=== PATIENT | female | born 1940 | race Caucasian/White ===

== ENCOUNTER 2018-03-07 17:50 | Inpatient (IN) | payer OTHER ==
[~2018-03-07] VITALS: Ht 170.2 cm; Wt 65.4 kg
[2018-03-07] MEDS ORDERED: ACETAMINOPHEN 500 MG TAB PO STA (18:41)
[2018-03-07] MEDS ORDERED: SODIUM CHLORIDE 0.9% 500ML 500 ML IV STA (18:41)
--- NOTE | 2018-03-07 18:44 | EMERGENCY ROOM VISIT NOTE ---
History Report prepared by Glynn: Grzegorz Ny Under the Supervision of: Dr. Kamini Pereyra D.O. First contact with patient: 18:31 Chief Complaint: ILLNESS Stated Complaint: MENTAL STATUS CHANGE,INCONTINENCE,EAR PAIN,UTI History of Present Illness The patient is a 77 year old female who presents to the Emergency Room with complaints of a constant AMS beginning yesterday. Per daughter, the patient flew here yesterday from [place]. She states that the patient has been having ear pain, cognitive changes, and a fever. She notes that the patient was taken to an urgent care facility today and had a fever of 101.5. She reports that she is worried that the patient might have a UTI. The patient denies any cough, headache, abdominal pain, chest pain, nausea, diarrhea, urinary symptoms, blood in her stool, dizziness, weakness, and known sick contacts. Source of History: patient, family (daughter) Onset: yesterday Position: other (head) Quality: other (AMS) Timing: constant Associated Symptoms: + fevers (101.5), No headache, No cough, No chest pain , No nausea, No abdominal pain, No diarrhea, No urinary symptoms, No weakness Note: Per daughter, the patient has also been having ear pain and cognitive changes. The patient also denies any blood in her stool and dizziness. Review of Systems See HPI for pertinent positives & negatives. A total of 10 systems reviewed and were otherwise negative. Past Medical & Surgical Medical Problems: (1) Atrial fibrillation (2) Dementia (3) Dyslipidemia (4) No chronic problems (5) TIA (transient ischemic attack) Surgical Problems: (1) H/O: hysterectomy Family History No pertinent family history stated. Social History Smoking Status: Never Smoker Marital Status: single Housing Status: lives with family Current/Historical Medications Scheduled Aspirin (Aspirin Ec), 81 MG PO DAILY Carboxymethylcellulose Sodium (Refresh Tears), 1 DROP OPB prn Allergies Coded Allergies: No Known Allergies (Unverified , 03/07/18) Physical Exam Vital Signs Date Time Temp Pulse Resp B/P (MAP) Pulse Ox O2 Delivery O2 Flow Rate FiO2 03/07/18 21:57 100 18 123/50 97 Room Air 03/07/18 21:35 100 22 158/112 98 Room Air 03/07/18 20:32 36.7 03/07/18 20:20 89 03/07/18 20:20 89 24 128/95 96 Room Air 03/07/18 18:40 90 24 141/82 97 Room Air 03/07/18 18:05 37.5 102 18 135/75 95 Room Air Physical Exam GENERAL: alert, well appearing, well nourished, no distress, non-toxic, febrile. EYE EXAM: normal conjunctiva, PERRL and EOM's grossly intact OROPHARYNX: no exudate, no erythema, lips, buccal mucosa, and tongue normal and mucous membranes are moist EARS: No effusion, no evidence of otitis media or otitis externa. NECK: supple, no nuchal rigidity, no adenopathy, non-tender LUNGS: Clear to auscultation. Normal chest wall mechanics HEART: no murmurs, S1 normal and S2 normal ABDOMEN: abdomen soft, non-tender, normo-active bowel sounds, no masses, no rebound or guarding. BACK: Back is symmetrical on inspection and there is no deformity, no midline tenderness, no CVA tenderness. SKIN: no rashes and no bruising UPPER EXTREMITIES: upper extremities are grossly normal. LOWER EXTREMITIES: No pitting edema. NEURO EXAM: Cranial nerves II-XII grossly intact, normal speech, no gross weakness of arms, no gross weakness of legs, confused, no ataxia, no facial droop. Medical Decision & Procedures ER Provider Diagnostic Interpretation: Radiology results have been interpreted by the radiologist and reviewed by me. HEAD WITHOUT CONTRAST (CT) FINDINGS: [employer] topogram: Unremarkable. Proportional ventricular and sulcal prominence, likely age-related parenchymal volume loss. Periventricular and subcortical white matter hypoattenuation, nonspecific but likely indicative of chronic small vessel ischemic change. No mass effect or midline shift. No hemorrhage or acute territorial infarct. No extra-axial fluid collection. Aerated secretions in the bilateral maxillary sinuses with mucosal thickening in ethmoid air cells. Calvarium intact. Postsurgical changes of the bilateral globes. IMPRESSION: 1. Chronic small vessel ischemic change. No acute intracranial abnormality. 2. Aerated secretions in the bilateral maxillary sinuses consistent with acute sinusitis. Electronically signed by: Delvis Jeter M.D. 03/07/2018 7:56 PM CHEST ONE VIEW PORTABLE FINDINGS: The patient is JAS[place] rotated. Atherosclerosis of aortic arch. Cardiac silhouette top normal in size allowing for patient rotation. Mild bronchial wall thickening suggested. Slight heterogeneity of lung parenchyma. No focal opacity. No large effusion or pneumothorax. Osseous structures normal. Upper abdomen normal. IMPRESSION: 1. No focal opacity to suggest pneumonia. 2. Suggestion of bronchial wall thickening. This could represent mild congestive change or bronchitis. 3. Heterogeneity of lung parenchyma is nonspecific. Underlying emphysema not excluded. Electronically signed by: Delvis Jeter M.D. 03/07/2018 7:42 PM Laboratory Results Test 03/07/18 18:35 03/07/18 19:01 03/07/18 19:20 Immature Granulocyte % (Auto) 0.3 % White Blood Count 13.66 K/uL (4.8-10.8) Red Blood Count 4.11 M/uL (4.2-5.4) Hemoglobin 13.6 g/dL (12.0-16.0) Hematocrit 39.2 % (37-47) Mean Corpuscular Volume 95.4 fL (80-100) Mean Corpuscular Hemoglobin 33.1 pg (25-34) Mean Corpuscular Hemoglobin Concent 34.7 g/dl (32-36) Platelet Count 255 K/uL (130-400) Mean Platelet Volume 9.4 fL (7.4-10.4) Neutrophils (%) (Auto) 70.0 % Lymphocytes (%) (Auto) 18.9 % Monocytes (%) (Auto) 10.0 % Eosinophils (%) (Auto) 0.4 % Basophils (%) (Auto) 0.4 % Neutrophils # (Auto) 9.57 K/uL (1.4-6.5) Lymphocytes # (Auto) 2.58 K/uL (1.2-3.4) Monocytes # (Auto) 1.36 K/uL (0.11-0.59) Eosinophils # (Auto) 0.05 K/uL (0-0.5) Basophils # (Auto) 0.06 K/uL (0-0.2) Immature Granulocyte # (Auto) 0.04 K/uL (0.00-0.02) Prothrombin Time 10.7 SECONDS (9.0-12.0) Prothromb Time International Ratio 1.0 (0.9-1.1) Total Bilirubin 0.5 mg/dl (0.2-1) Aspartate Amino Transf (AST/SGOT) 20 U/L (15-37) Alanine Aminotransferase (ALT/SGPT) 23 U/L (12-78) Alkaline Phosphatase 105 U/L (45-117) Pro-B-Type Natriuretic Peptide 199 pg/ml (0-1800) Total Protein 6.8 gm/dl (6.4-8.2) Albumin 3.2 gm/dl (3.4-5.0) Globulin 3.6 gm/dl (2.5-4.0) Albumin/Globulin Ratio 0.9 (0.9-2) Lipase 110 U/L (73-393) Procalcitonin 0.06 ng/ml (0-0.5) Thyroid Stimulating Hormone (TSH) 0.563 uIu/ml (0.300-4.500) Bedside Lactic Acid Venous 1.54 mmol/L (0.90-1.70) Urine Color YELLOW Urine Appearance CLEAR (CLEAR) Urine pH 6.0 (4.5-7.5) Urine Specific [place] 1.015 (1.000-1.030) Urine Protein NEG (NEG) Urine Glucose (UA) NEG (NEG) Urine Ketones NEG (NEG) Urine Occult Blood 2+ (NEG) Urine Nitrite NEG (NEG) Urine Bilirubin NEG (NEG) Urine Urobilinogen NEG (NEG) Urine Leukocyte Esterase NEG (NEG) Urine WBC (Auto) 1-5 /hpf (0-5) Urine RBC (Auto) 0-4 /hpf (0-4) Urine Hyaline Casts (Auto) 0 /lpf (0-5) Urine Epithelial Cells (Auto) 0-5 /lpf (0-5) Urine Bacteria (Auto) NEG (NEG) Influenza Type A Antigen Neg for Influ A (NEG) Influenza Type B Antigen Neg for Influ B (NEG) Laboratory results per my review. Medications Administered Medications (Trade) Dose Ordered Sig/Gisele Route Start Time Stop Time Status Last Admin Dose Admin Acetaminophen (Tylenol Tab) 1,000 mg NOW STAT PO 03/07/18 18:41 03/07/18 18:43 DC 03/07/18 19:06 1,000 MG Sodium Chloride 500 ml @ 999 mls/hr Q31M STAT IV 03/07/18 18:41 03/07/18 19:11 DC 03/07/18 19:10 999 MLS/HR Lorazepam (Ativan Inj) 1 mg NOW STAT IV 03/07/18 21:23 4/13/18 21:24 DC 03/07/18 21:27 1 MG Lorazepam (Ativan Inj) 1 mg NOW STAT IV 03/07/18 22:02 03/07/18 22:04 DC 03/07/18 22:02 1 MG ECG Per My Interpretation Indication: altered mental status Rate (beats per minute): 90 Rhythm: sinus rhythm Findings: RBBB, no acute ischemic change, no ectopy, other (Left axis) ED Course 1831: The patient was evaluated in room A9. A complete history and physical exam was performed. 1840: Sodium Chloride 500 ml @ 999 mls/hr IV, Acetaminophen 1000mg PO 2024: I reevaluated and updated the patient and her daughter. The patients temperature is better but she is still confused. She is eating at bedside. Her daughter states that she has been trying to have the patient placed in a correction care facility due to her worsening cognition over the last few months. 2122: Lorazepam 1mg IV 2123: I rechecked the patient. She is becoming more agitated. I discussed the possibility of an LP on the patient. I have a low suspicion of meningitis/ encephalitis. Daughter does not feel the patient should have a lumbar puncture at this time. Given my low suspicion I agree and we will avoid the LP at this time but discussed with her this may need to be revisited should her condition worsen or she starts to complain of other symptoms more suggestive of meningitis /encephalitis. The daughter verbalized understanding. 8: Upon reevaluation, the patient is stable. I discussed the findings and the treatment plan with the patient and her daughter. They express agreement and understanding. I spoke with Dr. Doe of the [facility]. The patient will be evaluated for further management. Medical Decision Differential diagnosis: Etiologies such as metabolic, infection, hypoglycemia, electrolyte abnormalities , cardiac sources, intracerebral event, toxicologic, neurologic, as well as others were entertained. Patient likely with worsening mentation due to delirium from fever on top of a worsening baseline from evolving dementia. No focal source of infection was found here. Acute sinusitis was noted on CT however patient with no clinical symptoms or physical exam findings to suggest acute sinusitis. Patient with no other findings to suggest acute meningitis. Patient not immunocompromised. In light of unclear etiology and otherwise well appearance here, patient not started on broad-spectrum antibiotics. This was discussed with the hospitalist at the time of case presentation. It is possible patient with a viral illness presenting with a fever. Patient and daughter aware of her results. Daughter agreeable and prefers patient be monitored in hospital she is unable to care for her at her house due to her cognition at this time. Cultures were sent as a precaution. I do not suspect bacteremia/sepsis. Do not suspect other acute [employer] infection. Medication Reconcilliation Current Medication List: was personally reviewed by me Blood Pressure Screening Patient's blood pressure: Elevated blood pressure Elevated blood pressure will be monitored by hospitalist. Consults Time Called: 2123 Consulting Physician: Ahmet Alcantara Returned Call: [phone] I reviewed the patient's case with Ahmet Alcantara. He will evaluate the patient for further management. Impression Primary Impression: Altered mental status Additional Impression: Fever Scribe Attestation The scribe's documentation has been prepared under my direction and personally reviewed by me in its entirety. I confirm that the note above accurately reflects all work, treatment, procedures, and medical decision making performed by me. Departure Information Dispostion Being Evaluated By Hospitalist Referrals No Doctor, Assigned (PCP) Patient Instructions My [facility] Problem Qualifiers Primary Impression: Altered mental status Altered mental status type: unspecified Qualified Codes: R41.82 - Altered mental status, unspecified Additional Impression: Fever Fever type: unspecified Qualified Codes: R50.9 - Fever, unspecified
[2018-03-07 18:58] LABS: BASO % 0.4 %; BASO ABS # 0.06 K/uL (0-0.2); EOS % 0.4 %; EOS ABS # 0.05 K/uL (0-0.5); HEMATOCRIT 39.2 % (37-47); HEMOGLOBIN 13.6 g/dL (12.0-16.0); IG# 0.04 K/uL (0.00-0.02); LYMPH % 18.9 %; LYMPH ABS # 2.58 K/uL (1.2-3.4); MEAN CELL VOLUME 95.4 fL (80-100); MEAN CORPUSCULAR HEMOGLOBIN 33.1 pg (25-34); MEAN CORPUSCULAR HGB CONC 34.7 g/dl (32-36); MEAN PLATELET VOLUME 9.4 fL (7.4-10.4); MONO ABS # 1.36 K/uL (0.11-0.59); NEUT ABS # 9.57 K/uL (1.4-6.5); PLATELET COUNT 255 K/uL (130-400); RED CELL DISTRIBUTION WIDTH CV 12.5 % (11.5-14.5); WHITE BLOOD COUNT 13.66 K/uL (4.8-10.8)
[2018-03-07 19:08] LABS: ALBUMIN 3.2 gm/dl (3.4-5.0); ALT/SGPT 23 U/L (12-78); BLOOD UREA NITROGEN 16 mg/dl (7-18); CALCIUM 9.8 mg/dl (8.5-10.1); CARBON DIOXIDE 26 mmol/L (21-32); CREATININE 0.91 mg/dl (0.60-1.20); GLUCOSE 119 mg/dl (70-99); LIPASE 110 U/L (73-393); POTASSIUM 3.9 mmol/L (3.5-5.1); SODIUM 136 mmol/L (136-145)
[2018-03-07 19:19] LABS: ALKALINE PHOSPHATASE 105 U/L (45-117); AST/SGOT 20 U/L (15-37); TOTAL PROTEIN 6.8 gm/dl (6.4-8.2)
--- NOTE | 2018-03-07 19:43 | DIAGNOSTIC IMAGING REPORT ---
CHEST ONE VIEW PORTABLE CLINICAL HISTORY: 77 years-old Female presenting with fever. TECHNIQUE: Portable upright AP view of the chest was obtained. COMPARISON: None. FINDINGS: The patient is [place] rotated. Atherosclerosis of aortic arch. Cardiac silhouette top normal in size allowing for patient rotation. Mild bronchial wall thickening suggested. Slight heterogeneity of lung parenchyma. No focal opacity. No large effusion or pneumothorax. Osseous structures normal. Upper abdomen normal. IMPRESSION: 1. No focal opacity to suggest pneumonia. 2. Suggestion of bronchial wall thickening. This could represent mild congestive change or bronchitis. 3. Heterogeneity of lung parenchyma is nonspecific. Underlying emphysema not excluded. Electronically signed by: Delvis Jeter M.D. 03/07/2018 7:42 PM Dictated Date/Time: 03/07/2018 7:41 PM
--- NOTE | 2018-03-07 19:58 | DIAGNOSTIC IMAGING REPORT ---
HEAD WITHOUT CONTRAST (CT) CLINICAL HISTORY: 77 years-old Female presenting with change in mental status, confusion, fever. TECHNIQUE: Multidetector CT imaging of the head was performed without the use of intravenous contrast. IV contrast: None. A dose lowering technique was used consistent with the principles of ALARA (as low as reasonably achievable). COMPARISON: None. CT DOSE (mGy.cm): The estimated cumulative dose is 537.48 mGy.cm. FINDINGS: [employer] topogram: Unremarkable. Proportional ventricular and sulcal prominence, likely age-related parenchymal volume loss. Periventricular and subcortical white matter hypoattenuation, nonspecific but likely indicative of chronic small vessel ischemic change. No mass effect or midline shift. No hemorrhage or acute territorial infarct. No extra-axial fluid collection. Aerated secretions in the bilateral maxillary sinuses with mucosal thickening in ethmoid air cells. Calvarium intact. Postsurgical changes of the bilateral globes. IMPRESSION: 1. Chronic small vessel ischemic change. No acute intracranial abnormality. 2. Aerated secretions in the bilateral maxillary sinuses consistent with acute sinusitis. Electronically signed by: Delvis Jeter M.D. 03/07/2018 7:56 PM Dictated Date/Time: 03/07/2018 7:55 PM
[2018-03-07 20:08] LABS: INFLUENZA B ANTIGEN Neg for Influ B (NEG)
[2018-03-07] MEDS ORDERED: LORAZEPAM 2 MG/ML 1 ML VIAL IV STA ×2 (21:23→22:02)
[2018-03-07] MEDS ORDERED: ASPI81TA28 PO (22:26)
[2018-03-07] MEDS ORDERED: CARB0.5D28 OPB (22:26)
[2018-03-07] MEDS ORDERED: ONDANSETRON INJ 2 MG/ML 2 ML VIAL IV PRN (23:15)
[2018-03-07] MEDS ORDERED: ACETAMINOPHEN 325 MG TAB PO PRN (23:15)
--- NOTE | 2018-03-07 23:16 | History and Physical ---
History & Physical Date & Time of Service: Mar 07, 2018 at 23:16 Chief Complaint: Mental Status Change,Incontinence,Ear Pain,Uti Primary Care Physician: No Doctor, Assigned History of Present Illness Source: family, hospital records, other (ER physician) Patient is a 77-year-old female with past medical history of atrial fibrillation , hyperlipidemia, dementia, TIA, multiple UTIs and other problems presents with history of altered mental status since yesterday. Patient is currently very drowsy secondary to Ativan given in the ED. Most of the information is obtained from the patient's daughter and from the ER physician. As per the patient's daughter patient flew from [place] yesterday and has been complaining of right ear pain. She had fever of 101.5 F today and seems to be more confused than her baseline. She was also noted to have a dry cough since last few days. She had been incontinent with bowel and bladder today. Patient's daughter informs that she was planning to place her in a facility as patient is unable to take care of herself secondary to dementia. No known history of chest pain, SOB, dizziness, fall, LOC, headache, weakness, neck stiffness, change in vision, slurred speech, facial deformity, abdominal pain, diarrhea or dysuria. Patient daughter also informed the patient has been not taking her medications as advised since unknown duration period. Past Medical/Surgical History Medical Problems: (1) Atrial fibrillation (2) Dementia (3) Dyslipidemia (4) No chronic problems (5) TIA (transient ischemic attack) Surgical Problems: (1) H/O: hysterectomy Family History FH: cancer FATHER FH: heart disease MOTHER Social History Smoking Status: Former Smoker Alcohol Use: socially Drug Use: none Marital Status: single Allergies Coded Allergies: No Known Allergies (Unverified , 03/07/18) Home Medications Scheduled Aspirin (Aspirin Ec), 81 MG PO DAILY Carboxymethylcellulose Sodium (Refresh Tears), 1 DROP OPB prn Review of Systems See HPI for pertinent positives & negatives. A total of 10 systems reviewed and were otherwise negative. Physical Exam Vital Signs Date Time Temp Pulse Resp B/P (MAP) Pulse Ox O2 Delivery O2 Flow Rate FiO2 03/07/18 21:57 100 18 123/50 97 Room Air 03/07/18 21:35 100 22 158/112 98 Room Air 03/07/18 20:32 36.7 03/07/18 20:20 89 4/13/18 20:20 89 24 128/95 96 Room Air 03/07/18 18:40 90 24 141/82 97 Room Air 03/07/18 18:05 37.5 102 18 135/75 95 Room Air General Appearance: WD/WN, no apparent distress, + pertinent finding (Very drowsy) Head: normocephalic, atraumatic Eyes: normal inspection, PERRL, EOMI, sclerae normal ENT: normal ENT inspection, hearing grossly normal Neck: supple, trachea midline Respiratory/Chest: chest non-tender, lungs clear, normal breath sounds, no respiratory distress, no accessory muscle use Cardiovascular: regular rate, rhythm, no edema, no murmur, + tachycardia Abdomen/GI: normal bowel sounds, non tender, soft Back: normal inspection Extremities/Musculoskelatal: normal inspection, no pedal edema Neurologic/Psych: + pertinent finding (Very drowsy, Complete neuro exam coul dnot be performed ) Skin: normal color, warm/dry Diagnostics Laboratory Results Results Past 24 Hours Test 03/07/18 18:35 03/07/18 19:01 03/07/18 19:20 Range/Units White Blood Count 13.66 4.8-10.8 K/uL Red Blood Count 4.11 4.2-5.4 M/uL Hemoglobin 13.6 12.0-16.0 g/dL Hematocrit 39.2 37-47 % Mean Corpuscular Volume 95.4 80-100 fL Mean Corpuscular Hemoglobin 33.1 25-34 pg Mean Corpuscular Hemoglobin Concent 34.7 32-36 g/dl Platelet Count 255 130-400 K/uL Mean Platelet Volume 9.4 7.4-10.4 fL Neutrophils (%) (Auto) 70.0 % Lymphocytes (%) (Auto) 18.9 % Monocytes (%) (Auto) 10.0 % Eosinophils (%) (Auto) 0.4 % Basophils (%) (Auto) 0.4 % Neutrophils # (Auto) 9.57 1.4-6.5 K/uL Lymphocytes # (Auto) 2.58 1.2-3.4 K/uL Monocytes # (Auto) 1.36 0.11-0.59 K/uL Eosinophils # (Auto) 0.05 0-0.5 K/uL Basophils # (Auto) 0.06 0-0.2 K/uL RDW Standard Deviation 43.0 36.4-46.3 fL RDW Coefficient of Variation 12.5 11.5-14.5 % Immature Granulocyte % (Auto) 0.3 % Immature Granulocyte # (Auto) 0.04 0.00-0.02 K/uL Prothrombin Time 10.7 9.0-12.0 SECONDS Prothromb Time International Ratio 1.0 0.9-1.1 Sodium Level 136 136-145 mmol/L Potassium Level 3.9 3.5-5.1 mmol/L Chloride Level 103 98-107 mmol/L Carbon Dioxide Level 26 21-32 mmol/L Anion Gap 7.0 3-11 mmol/L Blood Urea Nitrogen 16 7-18 mg/dl Creatinine 0.91 0.60-1.20 mg/dl Est Creatinine Clear Calc Drug Dose 48.8 ml/min Estimated GFR () 69.5 Estimated GFR (Non- 60.0 BUN/Creatinine Ratio 18.0 10-20 Random Glucose 119 70-99 mg/dl Calcium Level 9.8 8.5-10.1 mg/dl Magnesium Level 2.2 1.8-2.4 mg/dl Total Bilirubin 0.5 0.2-1 mg/dl Aspartate Amino Transf (AST/SGOT) 20 15-37 U/L Alanine Aminotransferase (ALT/SGPT) 23 12-78 U/L Alkaline Phosphatase 105 45-117 U/L Troponin I < 0.015 0-0.045 ng/ml Pro-B-Type Natriuretic Peptide 199 0-1800 pg/ml Total Protein 6.8 6.4-8.2 gm/dl Albumin 3.2 3.4-5.0 gm/dl Globulin 3.6 2.5-4.0 gm/dl Albumin/Globulin Ratio 0.9 0.9-2 Lipase 110 73-393 U/L Procalcitonin 0.06 0-0.5 ng/ml Thyroid Stimulating Hormone (TSH) 0.563 0.300-4.500 uIu/ml Bedside Lactic Acid Venous 1.54 0.90-1.70 mmol/L Urine Color YELLOW Urine Appearance CLEAR CLEAR Urine pH 6.0 4.5-7.5 Urine Specific [place] 1.015 1.000-1.030 Urine Protein NEG NEG Urine Glucose (UA) NEG NEG Urine Ketones NEG NEG Urine Occult Blood 2+ NEG Urine Nitrite NEG NEG Urine Bilirubin NEG NEG Urine Urobilinogen NEG NEG Urine Leukocyte Esterase NEG NEG Urine WBC (Auto) 1-5 0-5 /hpf Urine RBC (Auto) 0-4 0-4 /hpf Urine Hyaline Casts (Auto) 0 0-5 /lpf Urine Epithelial Cells (Auto) 0-5 0-5 /lpf Urine Bacteria (Auto) NEG NEG Influenza Type A Antigen Neg for Influ A NEG Influenza Type B Antigen Neg for Influ B NEG Microbiology Results 03/07/18 Blood Culture, Received Pending 03/07/18 Blood Culture, Received Pending Diagnostic Radiology CT Head: 1. Chronic small vessel ischemic change. No acute intracranial abnormality. 2. Aerated secretions in the bilateral maxillary sinuses consistent with acute sinusitis. CXR: 1. No focal opacity to suggest pneumonia. 2. Suggestion of bronchial wall thickening. This could represent mild congestive change or bronchitis. 3. Heterogeneity of lung parenchyma is nonspecific. Underlying emphysema not excluded. EKG EKG: NSR, RBBB,LAFB Impression Assessment and Plan Altered Mental Status: unclear etiology H/O dementia CT head: Chronic small vessel ischemic change. No acute intracranial abnormality. Aerated secretions in the bilateral maxillary sinuses consistent with acute sinusitis Neuro checks No recent medication changes TSH normal Neurology consulted UA no signs of UTI Obtain old records from PCP SIRS: CXR suggestive of possible Bronchitis Presented with fever and AMS No headache/neck stiffness as per daughter Blood cultures ordered Started on Levaquin empirically Normal procalcitonin/lactate Flu Screen: negative H/O P.atrial fibrillation: Only on Aspirin 81mg at home currently in sinus monitor H/O hyperlipidemia not on meds H/O TIA: continue Aspirin Dementia: May need placement as per daughter's request social work case manager consulted DVT Px: Heparin SQ Code Status: DNI/DNR as per patient's daughter POA Disposition: monitor in Tele Resuscitation Status VTE Prophylaxis Will order VTE Prophylaxis: Yes
[2018-03-08] VITALS (10 sets, daily range): BP systolic 114–145; BP diastolic 50–85; PULSE 71–100; TEMP 36.3–36.9; O2SAT 96–100; Ht 170.2 cm; Wt 65.4 kg
[2018-03-08] MEDS ORDERED: LEVOFLOXACIN CONSULT ACTIVE PRN (01:43)
[2018-03-08] MEDS ORDERED: LEVOFLOXACIN 500MG / D5W IV SCH (02:00)
[2018-03-08] MEDS ORDERED: SODIUM CHLORIDE 0.9% 1000ML 1,000 ML IV ONE (02:00)
[2018-03-08] MEDS ORDERED: PNEUMOCOCCAL ADMINISTRATION CHARGE ONE (06:15)
[2018-03-08] MEDS ORDERED: PNEUMOCOCCAL POLYSACCHARIDES 25 MCG/0.5 ML VIAL/SYR IM. ONE (06:15)
[2018-03-08] MEDS: HEPARIN SOD 5000 UNIT/0.5 ML CARP SQ SCH ×3 (06:18→21:59)
[2018-03-08 06:22] LABS: HEMATOCRIT 36.9 % (37-47); HEMOGLOBIN 13.2 g/dL (12.0-16.0); MEAN CELL VOLUME 95.3 fL (80-100); MEAN CORPUSCULAR HEMOGLOBIN 34.1 pg (25-34); MEAN CORPUSCULAR HGB CONC 35.8 g/dl (32-36); PLATELET COUNT 196 K/uL (130-400); RED CELL DISTRIBUTION WIDTH CV 12.6 % (11.5-14.5); RED CELL DISTRIBUTION WIDTH SD 43.1 fL (36.4-46.3); WHITE BLOOD COUNT 8.71 K/uL (4.8-10.8)
[2018-03-08 06:58] LABS: BLOOD UREA NITROGEN 11 mg/dl (7-18); CARBON DIOXIDE 27 mmol/L (21-32); CREATININE 0.53 mg/dl (0.60-1.20); GLUCOSE 106 mg/dl (70-99); POTASSIUM 3.6 mmol/L (3.5-5.1); SODIUM 142 mmol/L (136-145)
[2018-03-08] MEDS: ASPIRIN 81 MG ECTAB PO SCH (09:02)
--- NOTE | 2018-03-08 12:45 | NEUROLOGY CONSULTATION ---
DATE OF CONSULTATION: 03/08/2018 REASON FOR CONSULTATION: Confusion. HISTORY OF PRESENT ILLNESS: The patient is a 77-year-old with atrial fibrillation, hyperlipidemia, dementia, possible transient ischemic attack and multiple urinary tract infections, presents with altered mental status. The patient lived alone in [place] with some caregiving. She flew to [employer] [facility] [employer] [facility] [employer] [employer] [place] on and her daughter found her to be confused. She complained of pain in the ear. They took her to an urgent care center. She had a temperature of 101.5, was more confused, off baseline, and had a dry cough. As a cognitive baseline, the patient is confused with progressive language dysfunction, had been diagnosed with dementia, but not specifically given a diagnosis of Alzheimer dementia. I am assuming she had a prior workup including MRI and labs for treatable etiologies. She was not on any medications. The patient denies any headache, new weakness or numbness, but detailed review of systems is unobtainable due to her mental status. The patient does have a history of confusion with urinary tract infection in the past. PAST MEDICAL HISTORY: As above. PAST SURGICAL HISTORY: Hysterectomy. FAMILY HISTORY: Grandmother may have had a dementia in older years. Father had cancer and mother had heart disease. SOCIAL HISTORY: Former smoker. 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 MEDICATIONS ON ADMISSION: Aspirin and Refresh Tears. IMAGING: CT of the head noncontrast shows chronic small vessel changes, aerated secretions in the bilateral maxillary sinuses consistent with acute sinusitis. White count mildly elevated on admission at 13.66. Coags negative. Chemistry profile notable for a random glucose of 119. Urinalysis, 2+ blood, negative bacteria. Influenza A and B negative. PHYSICAL EXAMINATION: VITAL SIGNS: 36.9, 74, 18, 121/71, 97%. GENERAL: The patient is oriented to person. She was able to state that she was in [place] and guessed that she was at hospital. She has prominent word finding difficulty. Her speech is disfluent. She has a fluctuating level of alertness, is tangential and I would say mildly suspicious. Daughter indicates that she had some hallucinations on the day prior to admission. HEENT: Head is normocephalic, atraumatic. NECK: There is no neck stiffness. NEUROLOGIC: Pupils are equal. Optic nerves unremarkable. Normal ni, motility, facial symmetry. Symmetric strength and reflexes, downgoing toes. Gplchz-ai-nont is normal heel to caba limited by patient's incomplete understanding. Light touch is symmetric bilaterally. IMPRESSION: This patient appears to have a fairly severe dementia which is likely of an Alzheimer's type. She has a superimposed delirium, possibly related to a sinus infection. I do not see any evidence of a primary meningeal process. PLAN: Supportive care treatment of underlying infection where the patient not to improve, would recommend MRI brain, consideration for lumbar puncture. I do not think these are necessary at present. I spoke to the patient's daughter. ANTHONY
[2018-03-08] MEDS: AMPICILLIN/SULBACTAM SOD INJ 3,000 MG in SODIUM CHLORIDE 0.9% 100ML 100 ML IV SCH (18:22)
--- NOTE | 2018-03-08 19:10 | Progress Note ---
Medicine Progress Note Date & Time of Visit: Mar 08, 2018 at 14:30 . Subjective CC: Follow-up visit for altered mental status and other concerns. HPI: Admitted yesterday with change in mental status. Lives in [place], came to [place] to visit with her daughter. History of dementia, but more confused upon arrival to [facility]. CT in ED demonstrated maxillary sinusitis. No fever. Denies facial pain, sinus drainage, cough. ROS: General- as noted above in HPI Resp- as noted above in HPI Cardiac- no chest pain, no edema GI- no nausea, no vomiting; patient denies diarrhea, but daughter reports several episodes yesterday - no dysuria, no difficulty voiding . Objective Last 8 Hrs Date Time Temp Pulse Resp B/P (MAP) Pulse Ox O2 Delivery O2 Flow Rate FiO2 03/08/18 16:16 36.9 92 18 145/74 (97) 99 03/08/18 16:00 100 Room Air 03/08/18 12:46 36.9 90 18 114/72 (86) 100 Room Air 03/08/18 12:00 Room Air Physical Exam: General- elderly female, lying in bed, no distress Lungs- clear to auscultation; no respiratory distress Cardiovascular- irregular; no gallop appreciated; no JVD; no pretibial edema Abdomen- + bowel sounds, soft, nontender Extremities- no cyanosis; no calf tenderness Neuro- alert, confused- cannot [facility], month, year Skin- warm & dry . Laboratory Results: Last 24 Hours Test 03/07/18 19:01 03/07/18 19:20 03/08/18 05:53 Bedside Lactic Acid Venous 1.54 mmol/L Urine Color YELLOW Urine Appearance CLEAR Urine pH 6.0 Urine Specific Sawyer 1.015 Urine Protein NEG Urine Glucose (UA) NEG Urine Ketones NEG Urine Occult Blood 2+ Urine Nitrite NEG Urine Bilirubin NEG Urine Urobilinogen NEG Urine Leukocyte Esterase NEG Urine WBC (Auto) 1-5 /hpf Urine RBC (Auto) 0-4 /hpf Urine Hyaline Casts (Auto) 0 /lpf Urine Epithelial Cells (Auto) 0-5 /lpf Urine Bacteria (Auto) NEG Influenza Type A Antigen Neg for Influ A Influenza Type B Antigen Neg for Influ B White Blood Count 8.71 K/uL Red Blood Count 3.87 M/uL Hemoglobin 13.2 g/dL Hematocrit 36.9 % Mean Corpuscular Volume 95.3 fL Mean Corpuscular Hemoglobin 34.1 pg Mean Corpuscular Hemoglobin Concent 35.8 g/dl RDW Standard Deviation 43.1 fL RDW Coefficient of Variation 12.6 % Platelet Count 196 K/uL Mean Platelet Volume 9.0 fL Sodium Level 142 mmol/L Potassium Level 3.6 mmol/L Chloride Level 110 mmol/L Carbon Dioxide Level 27 mmol/L Anion Gap 5.0 mmol/L Blood Urea Nitrogen 11 mg/dl Creatinine 0.53 mg/dl Est Creatinine Clear Calc Drug Dose 83.7 ml/min Estimated GFR () 104.7 Estimated GFR (Non- 90.3 BUN/Creatinine Ratio 21.4 Random Glucose 106 mg/dl Calcium Level 9.0 mg/dl Magnesium Level 2.3 mg/dl Troponin I < 0.015 ng/ml Date/Time Source Procedure Growth Status 03/07/18 19:01 Blood Blood Culture Pending Received Assessment & Plan ALTERED MENTAL STATUS Daughter reports cognitive difficulties over the last 4 years. Now more confused. Suspect delirium / encephalopathy secondary to infection. MAXILLARY SINUSITIS Treat with IV ampicillin/sulbactam with anticipated transition to amoxicillin/ clavulanic acid. ATRIAL FIBRILLATION Rate controlled. Has not been anticoagulated due to fall risk. Continue aspirin. AMBULATORY DYSFUNCTION Has had multiple falls. PT / OT evals. INCOMPLETE DATA Medical records from [place] requested. VTE PROPHYLAXIS SQ heparin. Ambulate. DISPOSITION Anticipated need for skilled care. Daughter visiting and provided background information. . Current Inpatient Medications: Current Inpatient Medications Medications (Trade) Dose Ordered Sig/Gisele Route Start Time Stop Time Status Last Admin Dose Admin Heparin Sodium (Porcine) (Heparin Sq 5000 Unit/0.5ml) 5,000 unit Q8 SQ 03/08/18 06:00 04/07/18 05:59 03/08/18 14:34 5,000 UNIT Sodium Chloride 1,000 ml @ 50 mls/hr Q20H ONCE IV 03/08/18 02:00 03/08/18 21:59 03/08/18 02:12 50 MLS/HR Acetaminophen (Tylenol Tab) 650 mg Q4H PRN PO 03/07/18 23:15 04/06/18 23:14 Ondansetron HCl (Zofran Inj) 4 mg Q6H PRN IV 03/07/18 23:15 04/06/18 23:14 Aspirin (Ecotrin Tab) 81 mg DAILY PO 03/08/18 09:00 04/07/18 08:59 03/08/18 09:02 81 MG Ampicillin Sodium/ Sulbactam Sodium 3000 mg/Sodium Chloride 108 ml @ 200 mls/hr Q6H IV 03/08/18 18:00 03/18/18 17:59 03/08/18 18:22 200 MLS/HR
[2018-03-09] MEDS: AMPICILLIN/SULBACTAM SOD INJ 3,000 MG in SODIUM CHLORIDE 0.9% 100ML 100 ML IV SCH ×4 (00:20→17:36)
[2018-03-09] MEDS ORDERED: LEVOFLOXACIN 500MG / D5W IV SCH (02:00)
[2018-03-09] MEDS ORDERED: LEVOFLOXACIN 250MG / D5W IV SCH (02:00)
[2018-03-09 04:11] VITALS: BP 149/79; PULSE 89; TEMP 36.6; O2SAT 92
[2018-03-09] MEDS: HEPARIN SOD 5000 UNIT/0.5 ML CARP SQ SCH ×3 (06:17→21:21)
[2018-03-09 07:44] VITALS: BP 133/75; PULSE 77; TEMP 36.9; O2SAT 92
[2018-03-09] MEDS: ASPIRIN 81 MG ECTAB PO SCH (08:26)
--- NOTE | 2018-03-09 12:13 | PROGRESS NOTE ---
DATE: 03/09/2018 I am seeing, Ms. Zepeda in followup of what appears to be Alzheimer's dementia with superimposed delirium. She is feeling much improved today, quite hungry, tolerated her diet well yesterday. She apparently is less agitated. PHYSICAL EXAMINATION: She is awake and alert. She knows she is in a hospital. Knows she is not in [place]. Disoriented to year. No field cut facial asymmetry. No asymmetric weakness. IMPRESSION: Delirium superimposed on dementia. The patient is improving. We will follow with you. ANTHONY
[2018-03-09 14:38] VITALS: BP 122/73; PULSE 69; TEMP 36.4; O2SAT 96
[2018-03-09 19:06] VITALS: BP 136/76; PULSE 81; TEMP 36.9; O2SAT 95
--- NOTE | 2018-03-09 19:12 | Progress Note ---
Medicine Progress Note Date & Time of Visit: Mar 09, 2018 at 10:40 . Subjective CC: Follow-up visit for altered mental status and other concerns. HPI: Admitted 03/07 with change in mental status and sinusitis. Feels better. No fever. No facial pain, sinus drainage, cough. No shortness of breath. ROS: General- as noted above in HPI Resp- as noted above in HPI Cardiac- no chest pain, no edema GI- had one loose stool last evening; no nausea, no vomiting - no dysuria . Objective Last 8 Hrs Date Time Temp Pulse Resp B/P (MAP) Pulse Ox O2 Delivery O2 Flow Rate FiO2 03/09/18 19:06 36.9 81 20 136/76 (96) 95 Room Air 03/09/18 16:00 Room Air 03/09/18 14:38 36.4 69 16 122/73 (89) 96 Room Air 03/09/18 12:00 Room Air Physical Exam: General- elderly female, sitting in chair at bedside, no distress Lungs- clear to auscultation; no respiratory distress Cardiovascular- irregular; no gallop appreciated; no JVD; no pretibial edema Abdomen- + bowel sounds, soft, nontender Extremities- no cyanosis; no calf tenderness Neuro- alert, pleasantly confused, only oriented to person Skin- warm & dry . Assessment & Plan ALTERED MENTAL STATUS Daughter reports cognitive difficulties over the last 4 years. Presented with worsening confusion. Suspect delirium / encephalopathy secondary to infection. MAXILLARY SINUSITIS CT of head demonstrated maxillary sinusitis. Receiving IV ampicillin/sulbactam. Transition to amoxicillin/clavulanic acid. ATRIAL FIBRILLATION Rate controlled. Has not been anticoagulated due to fall risk. Continue aspirin. AMBULATORY DYSFUNCTION Has had multiple falls. PT / OT evals. INCOMPLETE DATA Medical records from [place] requested. VTE PROPHYLAXIS SQ heparin. Ambulate. DISPOSITION Anticipated need for skilled care. Daughter prefers [facility]. . Current Inpatient Medications: Current Inpatient Medications Medications (Trade) Dose Ordered Sig/Gisele Route Start Time Stop Time Status Last Admin Dose Admin Heparin Sodium (Porcine) (Heparin Sq 5000 Unit/0.5ml) 5,000 unit Q8 SQ 03/08/18 06:00 04/07/18 05:59 03/09/18 14:35 5,000 UNIT Acetaminophen (Tylenol Tab) 650 mg Q4H PRN PO 03/07/18 23:15 04/06/18 23:14 Ondansetron HCl (Zofran Inj) 4 mg Q6H PRN IV 03/07/18 23:15 04/06/18 23:14 Aspirin (Ecotrin Tab) 81 mg DAILY PO 03/08/18 09:00 04/07/18 08:59 03/09/18 08:26 81 MG Ampicillin Sodium/ Sulbactam Sodium 3000 mg/Sodium Chloride 108 ml @ 200 mls/hr Q6H IV 03/08/18 18:00 03/18/18 17:59 03/09/18 17:36 200 MLS/HR
[2018-03-09 23:44] VITALS: BP 159/85; O2SAT 95
[2018-03-10] MEDS: AMPICILLIN/SULBACTAM SOD INJ 3,000 MG in SODIUM CHLORIDE 0.9% 100ML 100 ML IV SCH (00:09)
[2018-03-10] MEDS: HEPARIN SOD 5000 UNIT/0.5 ML CARP SQ SCH ×3 (05:59→21:01)
[2018-03-10 06:57] VITALS: BP 126/68; PULSE 76; TEMP 36.3; O2SAT 93
[2018-03-10] MEDS: ASPIRIN 81 MG ECTAB PO SCH (07:38)
[2018-03-10] MEDS: AMOXICILLIN/CLAVULANATE TAB 875 MG TAB PO SCH ×2 (07:40→17:36)
--- NOTE | 2018-03-10 08:27 | Clinical Documentation Query ---
CLINICAL DOCUMENTATION QUERY Dr. LAN, In your clinical opinion is this patient being managed for: ( x ) Acute maxillary sinusitis ( ) Maxillary sinusitis (this actually will code to chronic maxillary sinusitis) ( ) Not Agree ( ) Other explanation of clinical findings (Please Explain) ( ) Unable to determine (Please Define) ( ) Need to Discuss The medical record reflects the following clinical findings, treatment, and risk factors. Clinical Indicators: 77 yo female presenting with fever, altered mental status. CT revealed maxillary sinusitis. Treatment: IV ampicillin/sulbactam, neurology consult Risk Factors: age Please clarify and document your clinical opinion in the progress notes and discharge summary. Terms such as "probable", "suspected", "likely", "questionable", "possible", or "still to be ruled out" are acceptable. IF IN AGREEMENT, YOU MUST DOCUMENT ABOVE DIAGNOSTIC STATEMENT IN DAILY PROGRESS NOTES AND DISCHARGE SUMMARY. This document is not part of the patient's record. Thank You, Lynnette Wilkes, ZINA [phone]
--- NOTE | 2018-03-10 14:57 | Neurology Progress Notes ---
Neurology Progress Note Date of Service Mar 10, 2018. Petty Pierre is a 77 year old PMH AF, DL, dementia, TIA, ongoing UTIs presented with a change in MS. She lived alone in [place] with some caregiving. She flew to [place] on 03/06 and was found to be confused. She was also complaining of ear pain. She was taken to the urgent care and had a 101.5 temp and was more confused off her baseline with a dry cough. At baseline she is confused with progressive language dysfunction and was diagnoses with dementia. Today she is pleasantly confused but does know she is in a hospital but doesn't know the name. denies CP, SOB, abdominal pain, weakness, numbness tingling, bowel or bladder issues. There is an aid at bedside. she has not been febrile since admission Objective Date Time Temp Pulse Resp B/P (MAP) Pulse Ox O2 Delivery O2 Flow Rate FiO2 03/10/18 08:00 Room Air 03/10/18 06:57 36.3 76 18 126/68 (87) 93 Room Air 03/10/18 00:00 Room Air 03/09/18 23:44 20 159/85 (109) 95 Room Air 03/09/18 20:00 Room Air 03/09/18 19:06 36.9 81 20 136/76 (96) 95 Room Air 03/09/18 16:00 Room Air Last 24 Hours Test 03/10/18 05:52 Vitamin B12 Level 1460 pg/mL 25-Hydroxy Vitamin D Total 28.2 ng/ml Imaging: no new imaging Exam: Gen: alert NAD, facial symmetry oriented to self and hospital but does not know year or season she laughs alot and tries to make everything funny CV RRR lungs course 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/5 bilaterally, hip flex plantar flex ext 5/5 bilaterally Current Inpatient Medications Medications (Trade) Dose Ordered Sig/Gisele Route Start Time Stop Time Status Last Admin Dose Admin Heparin Sodium (Porcine) (Heparin Sq 5000 Unit/0.5ml) 5,000 unit Q8 SQ 03/08/18 06:00 04/07/18 05:59 03/10/18 14:08 5,000 UNIT Acetaminophen (Tylenol Tab) 650 mg Q4H PRN PO 03/07/18 23:15 04/06/18 23:14 Ondansetron HCl (Zofran Inj) 4 mg Q6H PRN IV 03/07/18 23:15 04/06/18 23:14 Aspirin (Ecotrin Tab) 81 mg DAILY PO 03/08/18 09:00 04/07/18 08:59 03/10/18 07:38 81 MG Amoxicillin/ Clavulanate Potassium (Augmentin Tab) 875 mg BIDM PO 03/10/18 08:00 03/20/18 07:59 03/10/18 07:40 875 MG Impression 77 year old female with dementia and superimposed delirium appears to be improving Plan 1. PT/OT for discharge needs 2. rehab may need dementia unit if daughter is unable to provide assistance 3. continue to provide supportive care 4. treat underlying infection 5. if worsens LP would be helpful- currently appears at baseline 6. discharge to rehab when medically stable neurology 2-3 weeks after discharge from rehab. Dr Lorraine Vázquez or Lorraine Jara PAC schedule Pt seen and examined, seems less delirious today. Prominent language dysfunction cw with AD. Will sign off.MASOUD Vázquez MD
[2018-03-10 15:05] VITALS: BP 136/73; PULSE 76; TEMP 36.3; O2SAT 91
--- NOTE | 2018-03-10 19:59 | Progress Note ---
Medicine Progress Note Date & Time of Visit: Mar 10, 2018 at 11:10 . Subjective CC: Follow-up visit for altered mental status and other concerns. HPI: Admitted 03/07 with change in mental status and sinusitis. Doing better. Less confused. No fever. No facial pain, sinus drainage, cough. No shortness of breath. ROS: General- as noted above in HPI Resp- as noted above in HPI Cardiac- no chest pain, no edema GI- no nausea, no vomiting, no diarrhea - no dysuria . Objective Last 8 Hrs Date Time Temp Pulse Resp B/P (MAP) Pulse Ox O2 Delivery O2 Flow Rate FiO2 03/10/18 16:00 Room Air 03/10/18 15:05 36.3 76 18 136/73 (94) 91 Room Air Physical Exam: General- no distress Lungs- clear to auscultation; no respiratory distress Cardiovascular- irregular; no gallop appreciated; no JVD; no pretibial edema Abdomen- + bowel sounds, soft, nontender Extremities- no cyanosis; no calf tenderness Neuro- alert, pleasantly confused, oriented to person, now realizes that she is in the hospital, cannot state the year or month Skin- warm & dry . Laboratory Results: Last 24 Hours Test 03/10/18 05:52 Vitamin B12 Level 1460 pg/mL 25-Hydroxy Vitamin D Total 28.2 ng/ml Assessment & Plan ALTERED MENTAL STATUS Daughter reports cognitive difficulties over the last 4 years. Presented with worsening confusion. Suspect delirium / encephalopathy secondary to infection. MAXILLARY SINUSITIS CT of head demonstrated maxillary sinusitis. Receiving IV ampicillin/sulbactam. Transitioned to amoxicillin/clavulanic acid. ATRIAL FIBRILLATION Rate controlled. Has not been anticoagulated due to fall risk. Continue aspirin. AMBULATORY DYSFUNCTION Has had multiple falls. PT / OT evals. INCOMPLETE DATA Medical records from [place] requested. VTE PROPHYLAXIS SQ heparin. Ambulate. DISPOSITION Anticipated need for skilled care. Daughter prefers [facility], but no bed available. Referral made to [facility]. . Current Inpatient Medications: Current Inpatient Medications Medications (Trade) Dose Ordered Sig/Gisele Route Start Time Stop Time Status Last Admin Dose Admin Heparin Sodium (Porcine) (Heparin Sq 5000 Unit/0.5ml) 5,000 unit Q8 SQ 03/08/18 06:00 04/07/18 05:59 03/10/18 14:08 5,000 UNIT Acetaminophen (Tylenol Tab) 650 mg Q4H PRN PO 03/07/18 23:15 04/06/18 23:14 Ondansetron HCl (Zofran Inj) 4 mg Q6H PRN IV 03/07/18 23:15 04/06/18 23:14 Aspirin (Ecotrin Tab) 81 mg DAILY PO 03/08/18 09:00 04/07/18 08:59 03/10/18 07:38 81 MG Amoxicillin/ Clavulanate Potassium (Augmentin Tab) 875 mg BIDM PO 03/10/18 08:00 03/20/18 07:59 03/10/18 17:36 875 MG
[2018-03-10 23:35] VITALS: BP 141/83; PULSE 79; TEMP 36.4; O2SAT 93
[2018-03-11] MEDS: HEPARIN SOD 5000 UNIT/0.5 ML CARP SQ SCH ×3 (06:33→22:04)
[2018-03-11 07:52] VITALS: BP 125/74; PULSE 78; TEMP 36.6; O2SAT 94
[2018-03-11] MEDS: AMOXICILLIN/CLAVULANATE TAB 875 MG TAB PO SCH ×2 (07:59→16:21)
[2018-03-11] MEDS: CHOLECALCIFEROL 1000 INTER.UNIT TAB PO SCH (07:59)
[2018-03-11] MEDS: ASPIRIN 81 MG ECTAB PO SCH (07:59)
[2018-03-11 16:00] VITALS: O2SAT 94
[2018-03-11 16:31] VITALS: BP 148/82; PULSE 94; TEMP 36.6; O2SAT 95
--- NOTE | 2018-03-11 17:18 | Progress Note ---
Medicine Progress Note Date & Time of Visit: Mar 11, 2018 . Subjective CC: Follow-up visit for altered mental status, sinusitis, and other concerns. HPI: Admitted 03/07 with change in mental status and sinusitis. Doing better, but ongoing confusion. No fever. No facial pain, sinus drainage, cough. No shortness of breath. Cooperative; does not require 1:1 staffing. ROS: General- as noted above in HPI Resp- as noted above in HPI Cardiac- no chest pain, no edema GI- no nausea, no vomiting, no diarrhea - no dysuria . Objective Last 8 Hrs Date Time Temp Pulse Resp B/P (MAP) Pulse Ox O2 Delivery O2 Flow Rate FiO2 03/11/18 16:31 36.6 94 18 148/82 (104) 95 Room Air 03/11/18 16:00 94 Room Air Physical Exam: General- no distress Lungs- clear to auscultation; no respiratory distress Cardiovascular- irregular; no gallop appreciated; no JVD; no pretibial edema Abdomen- + bowel sounds, soft, nontender Extremities- no cyanosis; no calf tenderness Neuro- alert, pleasantly confused, oriented to person, hospital, but not the date or year Skin- warm & dry . Assessment & Plan ALTERED MENTAL STATUS Daughter reports cognitive difficulties over the last 4 years. Presented with worsening confusion. Suspect delirium / encephalopathy secondary to infection. MAXILLARY SINUSITIS CT of head demonstrated maxillary sinusitis. Receiving IV ampicillin/sulbactam. Transitioned to amoxicillin/clavulanic acid. Finish 10 course of antibiotics. ATRIAL FIBRILLATION Rate controlled. Has not been anticoagulated due to fall risk. Continue aspirin. AMBULATORY DYSFUNCTION Has had multiple falls. PT / OT evals. INCOMPLETE DATA Medical records from [place] requested. VTE PROPHYLAXIS SQ heparin. Ambulate. DISPOSITION Anticipated need for skilled care. Case Management consulted. . Current Inpatient Medications: Current Inpatient Medications Medications (Trade) Dose Ordered Sig/Gisele Route Start Time Stop Time Status Last Admin Dose Admin Heparin Sodium (Porcine) (Heparin Sq 5000 Unit/0.5ml) 5,000 unit Q8 SQ 03/08/18 06:00 04/07/18 05:59 03/11/18 14:01 5,000 UNIT Acetaminophen (Tylenol Tab) 650 mg Q4H PRN PO 03/07/18 23:15 04/06/18 23:14 Ondansetron HCl (Zofran Inj) 4 mg Q6H PRN IV 03/07/18 23:15 04/06/18 23:14 Aspirin (Ecotrin Tab) 81 mg DAILY PO 03/08/18 09:00 04/07/18 08:59 03/11/18 07:59 81 MG Amoxicillin/ Clavulanate Potassium (Augmentin Tab) 875 mg BIDM PO 03/10/18 08:00 03/20/18 07:59 03/11/18 16:21 875 MG Cholecalciferol (Vitamin D Tab) 1,000 inter.unit QAM PO 03/11/18 09:00 04/10/18 08:59 03/11/18 07:59 1,000 INTER.UNIT
[2018-03-12] VITALS: BP 155/85; PULSE 88; TEMP 36.8; O2SAT 92
[2018-03-12] MEDS: HEPARIN SOD 5000 UNIT/0.5 ML CARP SQ SCH ×2 (05:24→13:20)
[2018-03-12 07:22] VITALS: BP 131/70; PULSE 71; TEMP 36.4; O2SAT 96
[2018-03-12] MEDS: AMOXICILLIN/CLAVULANATE TAB 875 MG TAB PO SCH (07:54)
[2018-03-12] MEDS: ASPIRIN 81 MG ECTAB PO SCH (07:55)
[2018-03-12] MEDS: CHOLECALCIFEROL 1000 INTER.UNIT TAB PO SCH (07:55)
[2018-03-12 10:40] LABS: HEMATOCRIT 43.3 % (37-47); HEMOGLOBIN 14.9 g/dL (12.0-16.0); MEAN CELL VOLUME 96.7 fL (80-100); MEAN CORPUSCULAR HEMOGLOBIN 33.3 pg (25-34); MEAN CORPUSCULAR HGB CONC 34.4 g/dl (32-36); MEAN PLATELET VOLUME 8.6 fL (7.4-10.4); PLATELET COUNT 270 K/uL (130-400); RED CELL DISTRIBUTION WIDTH CV 12.7 % (11.5-14.5); RED CELL DISTRIBUTION WIDTH SD 44.1 fL (36.4-46.3); WHITE BLOOD COUNT 10.32 K/uL (4.8-10.8)
[2018-03-12 11:01] LABS: CALCIUM 10.2 mg/dl (8.5-10.1); CREATININE 0.62 mg/dl (0.60-1.20)
--- NOTE | 2018-03-12 11:39 | Progress Note ---
Internal Med Progress Note Date of Service: Mar 12, 2018. Provider Documentation: SUBJECTIVE: The patient was seen and examined in the telemetry unit She was admitted with a change in mental status associated with maxillary sinusitis She denies to any symptoms as of today Wants to be discharged OBJECTIVE: Vital Signs-as noted below Exam: General-no distress at rest Eyes-normal ENT-normal Neck-supple Lungs-clear to auscultate bilaterally Heart-regular, no murmur is Abdomen-benign, nontender, bowel sounds present Extremities-no edema Neuro-alert awake oriented No focal neuro deficit Lab data as noted below. ASSESSMENT & PLAN: ACUTE MAXILLARY SINUSITIS CT of head demonstrated maxillary sinusitis. Receiving IV ampicillin/sulbactam. Transitioned to amoxicillin/clavulanic acid. Finish 10 course of antibiotics. Denies to have sinus fullness and/or pain ALTERED MENTAL STATUS Daughter reports cognitive difficulties over the last 4 years. Presented with worsening confusion. Suspect delirium / encephalopathy secondary to infection. Mental status seems to be at baseline and no acute delirium Clinically stable to be discharged ATRIAL FIBRILLATION Rate controlled. Has not been anticoagulated due to fall risk. Continue aspirin. No acute symptoms AMBULATORY DYSFUNCTION Has had multiple falls. PT / OT evals.-Recommended rehab INCOMPLETE DATA Medical records from [place] requested-not received. VTE PROPHYLAXIS SQ heparin. Ambulate. DISPOSITION Anticipated need for skilled care. Case Management consulted. Discharge to [facility] today Vital Signs: Date Time Temp Pulse Resp B/P (MAP) Pulse Ox O2 Delivery O2 Flow Rate FiO2 03/12/18 08:00 Room Air 03/12/18 07:22 36.4 71 20 131/70 (90) 96 Room Air 03/12/18 00:00 Room Air 03/12/18 00:00 36.8 88 18 155/85 (108) 92 Room Air 03/11/18 16:31 36.6 94 18 148/82 (104) 95 Room Air 03/11/18 16:00 94 Room Air Lab Results: Results Past 24 Hours Test 03/12/18 10:25 Range/Units White Blood Count 10.32 4.8-10.8 K/uL Red Blood Count 4.48 4.2-5.4 M/uL Hemoglobin 14.9 12.0-16.0 g/dL Hematocrit 43.3 37-47 % Mean Corpuscular Volume 96.7 80-100 fL Mean Corpuscular Hemoglobin 33.3 25-34 pg Mean Corpuscular Hemoglobin Concent 34.4 32-36 g/dl RDW Standard Deviation 44.1 36.4-46.3 fL RDW Coefficient of Variation 12.7 11.5-14.5 % Platelet Count 270 130-400 K/uL Mean Platelet Volume 8.6 7.4-10.4 fL Sodium Level 138 136-145 mmol/L Potassium Level 4.0 3.5-5.1 mmol/L Chloride Level 105 98-107 mmol/L Carbon Dioxide Level 32 21-32 mmol/L Anion Gap 1.0 3-11 mmol/L Blood Urea Nitrogen 15 7-18 mg/dl Creatinine 0.62 0.60-1.20 mg/dl Est Creatinine Clear Calc Drug Dose 71.6 ml/min Estimated GFR () 99.4 Estimated GFR (Non- 85.8 BUN/Creatinine Ratio 24.2 10-20 Random Glucose 67 70-99 mg/dl Calcium Level 10.2 8.5-10.1 mg/dl Magnesium Level 2.3 1.8-2.4 mg/dl
[2018-03-12] MEDS ORDERED: AMOX1TAB43 PO (11:54)
--- NOTE | 2018-03-12 11:56 | Discharge Instructions ---
Discharge Instructions Date of Service Mar 12, 2018. Admission Reason for Admission: Altered Mental Status, Fever Discharge Discharge Diagnosis / Problem: AMS-back to baseline,Maxillary Sinusitis Discharge Goals Goal(s): Prevent Disease Progression Activity Recommendations Activity Level: Up Ad [place], Assistance Required Therapies: Physical Therapy, Occupational Therapy . Additional Information Patient informed of condition: Yes Advance Directives: No DNR: Yes Level of Care: Skilled Communicable Disease: No Prognosis: Stable Oxygen at (LPM): 2 liters/min via NC as needed Current Hospital Diet Patient's current hospital diet: AHA Diet (Heart Healthy) Discharge Diet Recommended Diet: AHA Diet (Heart Healthy) Pending Studies Studies pending at discharge: no Medical Emergencies . Who to Call and When: Medical Emergencies: If at any time you feel your situation is an emergency, please call 911 immediately. . Non-Emergent Contact Non-Emergency issues call your: Primary Care Provider . Past History Medical & Surgical History: (1) Maxillary sinusitis (2) Altered mental status (3) Atrial fibrillation (4) Dyslipidemia (5) TIA (transient ischemic attack) (6) Dementia (7) H/O: hysterectomy . "Provider Documentation" section prepared by Thanh Lofton. . Core Measure Problem Core Measures: None
[2018-03-12 12:19] VITALS: BP 131/70; PULSE 71; TEMP 36.4; O2SAT 96
--- NOTE | 2018-03-12 17:12 | Discharge Summary ---
Discharge Summary Date of Service Mar 12, 2018. Discharge Summary Admission Date: Mar 07, 2018 at 23:12 Discharge Date: Mar 12, 2018 Discharge Disposition: group home facility Principal Diagnosis: AMS-back to baseline,Maxillary Sinusitis Secondary Diagnoses/Problems: Please see H&P and Hospital Progress note Consultations: Neurology Medication Reconciliation New Medications: Amoxicillin & Pot Clavulanate (Amoxicillin/Clavulanate P) 1 Tab Tab 875 MG PO BIDM for 5 Days, #10 TAB Continued Medications: Aspirin (Aspirin Ec) 81 Mg Tab 81 MG PO DAILY Carboxymethylcellulose Sodium (Refresh Tears) 0.5 % Rodri 1 DROP OPB prn Admission Information HPI (per Admitting provider): Patient is a 77-year-old female with past medical history of atrial fibrillation , hyperlipidemia, dementia, TIA, multiple UTIs and other problems presents with history of altered mental status since yesterday. Patient is currently very drowsy secondary to Ativan given in the ED. Most of the information is obtained from the patient's daughter and from the ER physician. As per the patient's daughter patient flew from [place] yesterday and has been complaining of right ear pain. She had fever of 101.5 F today and seems to be more confused than her baseline. She was also noted to have a dry cough since last few days. She had been incontinent with bowel and bladder today. Patient's daughter informs that she was planning to place her in a facility as patient is unable to take care of herself secondary to dementia. No known history of chest pain, SOB, dizziness, fall, LOC, headache, weakness, neck stiffness, change in vision, slurred speech, facial deformity, abdominal pain, diarrhea or dysuria. Patient daughter also informed the patient has been not taking her medications as advised since unknown duration period. Past Medical/Surgical History Medical Problems: (1) Atrial fibrillation (2) Dementia (3) Dyslipidemia (4) No chronic problems (5) TIA (transient ischemic attack) Surgical Problems: (1) H/O: hysterectomy Family History FH: cancer FATHER FH: heart disease MOTHER Social History Smoking Status: Former Smoker Alcohol Use: socially Drug Use: none Marital Status: single Allergies Coded Allergies: No Known Allergies (Unverified , 03/07/18) Home Medications Scheduled Aspirin (Aspirin Ec), 81 MG PO DAILY Carboxymethylcellulose Sodium (Refresh Tears), 1 DROP OPB prn Review of Systems See HPI for pertinent positives & negatives. A total of 10 systems reviewed and were otherwise negative. Physical Exam Vital Signs Date Time Temp Pulse Resp B/P (MAP) Pulse Ox O2 Delivery O2 Flow Rate FiO2 03/07/18 21:57 100 18 123/50 97 Room Air 03/07/18 21:35 100 22 158/112 98 Room Air 03/07/18 20:32 36.7 03/07/18 20:20 89 03/07/18 20:20 89 24 128/95 96 Room Air 03/07/18 18:40 90 24 141/82 97 Room Air 03/07/18 18:05 37.5 102 18 135/75 95 Room Air General Appearance: WD/WN, no apparent distress, + pertinent finding (Very drowsy) Head: normocephalic, atraumatic Eyes: normal inspection, PERRL, EOMI, sclerae normal ENT: normal ENT inspection, hearing grossly normal Neck: supple, trachea midline Respiratory/Chest: chest non-tender, lungs clear, normal breath sounds, no respiratory distress, no accessory muscle use Cardiovascular: regular rate, rhythm, no edema, no murmur, + tachycardia Abdomen/GI: normal bowel sounds, non tender, soft Back: normal inspection Extremities/Musculoskelatal: normal inspection, no pedal edema Neurologic/Psych: + pertinent finding (Very drowsy, Complete neuro exam coul dnot be performed ) Skin: normal color, warm/dry Diagnostics Laboratory Results Results Past 24 Hours Test 03/07/18 18:35 03/07/18 19:01 03/07/18 19:20 Range/Units White Blood Count 13.66 4.8-10.8 K/uL Red Blood Count 4.11 4.2-5.4 M/uL Hemoglobin 13.6 12.0-16.0 g/dL Hematocrit 39.2 37-47 % Mean Corpuscular Volume 95.4 80-100 fL Mean Corpuscular Hemoglobin 33.1 25-34 pg Mean Corpuscular Hemoglobin Concent 34.7 32-36 g/dl Platelet Count 255 130-400 K/uL Mean Platelet Volume 9.4 7.4-10.4 fL Neutrophils (%) (Auto) 70.0 % Lymphocytes (%) (Auto) 18.9 % Monocytes (%) (Auto) 10.0 % Eosinophils (%) (Auto) 0.4 % Basophils (%) (Auto) 0.4 % Neutrophils # (Auto) 9.57 1.4-6.5 K/uL Lymphocytes # (Auto) 2.58 1.2-3.4 K/uL Monocytes # (Auto) 1.36 0.11-0.59 K/uL Eosinophils # (Auto) 0.05 0-0.5 K/uL Basophils # (Auto) 0.06 0-0.2 K/uL RDW Standard Deviation 43.0 36.4-46.3 fL RDW Coefficient of Variation 12.5 11.5-14.5 % Immature Granulocyte % (Auto) 0.3 % Immature Granulocyte # (Auto) 0.04 0.00-0.02 K/uL Prothrombin Time 10.7 9.0-12.0 SECONDS Prothromb Time International Ratio 1.0 0.9-1.1 Sodium Level 136 136-145 mmol/L Potassium Level 3.9 3.5-5.1 mmol/L Chloride Level 103 98-107 mmol/L Carbon Dioxide Level 26 21-32 mmol/L Anion Gap 7.0 3-11 mmol/L Blood Urea Nitrogen 16 7-18 mg/dl Creatinine 0.91 0.60-1.20 mg/dl Est Creatinine Clear Calc Drug Dose 48.8 ml/min Estimated GFR () 69.5 Estimated GFR (Non- 60.0 BUN/Creatinine Ratio 18.0 10-20 Random Glucose 119 70-99 mg/dl Calcium Level 9.8 8.5-10.1 mg/dl Magnesium Level 2.2 1.8-2.4 mg/dl Total Bilirubin 0.5 0.2-1 mg/dl Aspartate Amino Transf (AST/SGOT) 20 15-37 U/L Alanine Aminotransferase (ALT/SGPT) 23 12-78 U/L Alkaline Phosphatase 105 45-117 U/L Troponin I < 0.015 0-0.045 ng/ml Pro-B-Type Natriuretic Peptide 199 0-1800 pg/ml Total Protein 6.8 6.4-8.2 gm/dl Albumin 3.2 3.4-5.0 gm/dl Globulin 3.6 2.5-4.0 gm/dl Albumin/Globulin Ratio 0.9 0.9-2 Lipase 110 73-393 U/L Procalcitonin 0.06 0-0.5 ng/ml Thyroid Stimulating Hormone (TSH) 0.563 0.300-4.500 uIu/ml Bedside Lactic Acid Venous 1.54 0.90-1.70 mmol/L Urine Color YELLOW Urine Appearance CLEAR CLEAR Urine pH 6.0 4.5-7.5 Urine Specific [place] 1.015 1.000-1.030 Urine Protein NEG NEG Urine Glucose (UA) NEG NEG Urine Ketones NEG NEG Urine Occult Blood 2+ NEG Urine Nitrite NEG NEG Urine Bilirubin NEG NEG Urine Urobilinogen NEG NEG Urine Leukocyte Esterase NEG NEG Urine WBC (Auto) 1-5 0-5 /hpf Urine RBC (Auto) 0-4 0-4 /hpf Urine Hyaline Casts (Auto) 0 0-5 /lpf Urine Epithelial Cells (Auto) 0-5 0-5 /lpf Urine Bacteria (Auto) NEG NEG Influenza Type A Antigen Neg for Influ A NEG Influenza Type B Antigen Neg for Influ B NEG Microbiology Results 03/07/18 Blood Culture, Received Pending 03/07/18 Blood Culture, Received Pending Diagnostic Radiology CT Head: 1. Chronic small vessel ischemic change. No acute intracranial abnormality. 2. Aerated secretions in the bilateral maxillary sinuses consistent with acute sinusitis. CXR: 1. No focal opacity to suggest pneumonia. 2. Suggestion of bronchial wall thickening. This could represent mild congestive change or bronchitis. 3. Heterogeneity of lung parenchyma is nonspecific. Underlying emphysema not excluded. EKG EKG: NSR, RBBB,LAFB Impression Assessment and Plan Altered Mental Status: unclear etiology H/O dementia CT head: Chronic small vessel ischemic change. No acute intracranial abnormality. Aerated secretions in the bilateral maxillary sinuses consistent with acute sinusitis Neuro checks No recent medication changes TSH normal Neurology consulted UA no signs of UTI Obtain old records from PCP SIRS: CXR suggestive of possible Bronchitis Presented with fever and AMS No headache/neck stiffness as per daughter Blood cultures ordered Started on Levaquin empirically Normal procalcitonin/lactate Flu Screen: negative H/O P.atrial fibrillation: Only on Aspirin 81mg at home currently in sinus monitor H/O hyperlipidemia not on meds H/O TIA: continue Aspirin Dementia: May need placement as per daughter's request social work instructor consulted DVT Px: Heparin SQ Code Status: DNI/DNR as per patient's daughter POA Disposition: monitor in Tele Resuscitation Status VTE Prophylaxis Will order VTE Prophylaxis: Yes <Electronically signed by Allen Doe MD> Physical Exam (per Admitting): General Appearance: WD/WN, no apparent distress, + pertinent finding (Very drowsy) Head: normocephalic, atraumatic Eyes: normal inspection, PERRL, EOMI, sclerae normal ENT: normal ENT inspection, hearing grossly normal Neck: supple, trachea midline Respiratory/Chest: chest non-tender, lungs clear, normal breath sounds, no respiratory distress, no accessory muscle use Cardiovascular: regular rate, rhythm, no edema, no murmur, + tachycardia Abdomen/GI: normal bowel sounds, non tender, soft Back: normal inspection Extremities/Musculoskelatal: normal inspection, no pedal edema Neurologic/Psych: + pertinent finding (Very drowsy, Complete neuro exam coul dnot be performed ) Skin: normal color, warm/dry Hospital Course ACUTE MAXILLARY SINUSITIS CT of head demonstrated maxillary sinusitis. Receiving IV ampicillin/sulbactam. Transitioned to amoxicillin/clavulanic acid. Finish 10 course of antibiotics. Denies to have sinus fullness and/or pain ALTERED MENTAL STATUS Daughter reports cognitive difficulties over the last 4 years. Presented with worsening confusion. Suspect delirium / encephalopathy secondary to infection. Mental status seems to be at baseline and no acute delirium Clinically stable to be discharged ATRIAL FIBRILLATION Rate controlled. Has not been anticoagulated due to fall risk. Continue aspirin. No acute symptoms AMBULATORY DYSFUNCTION Has had multiple falls. PT / OT evals.-Recommended rehab INCOMPLETE DATA Medical records from [place] requested-not received. VTE PROPHYLAXIS SQ heparin. Ambulate. DISPOSITION Anticipated need for skilled care. Case Management consulted. Discharge to [facility] today Total time spent on discharge = 35 minutes This includes examination of the patient, discharge planning, medication reconciliation, and communication with other providers. Discharge Instructions Date of Service Mar 12, 2018. Admission Reason for Admission: Altered Mental Status, Fever Discharge Discharge Diagnosis / Problem: AMS-back to baseline,Maxillary Sinusitis Discharge Goals Goal(s): Prevent Disease Progression Activity Recommendations Activity Level: Up Ad [place], Assistance Required Therapies: Physical Therapy, Occupational Therapy . Additional Information Patient informed of condition: Yes Advance Directives: No DNR: Yes Level of Care: Skilled Communicable Disease: No Prognosis: Stable Oxygen at (LPM): 2 liters/min via [place] as needed Current Hospital Diet Patient's current hospital diet: AHA Diet (Heart Healthy) Discharge Diet Recommended Diet: AHA Diet (Heart Healthy) Pending Studies Studies pending at discharge: no Medical Emergencies . Who to Call and When: Medical Emergencies: If at any time you feel your situation is an emergency, please call 911 immediately. . Non-Emergent Contact Non-Emergency issues call your: Primary Care Provider . Past History Medical & Surgical History: (1) Maxillary sinusitis (2) Altered mental status (3) Atrial fibrillation (4) Dyslipidemia (5) TIA (transient ischemic attack) (6) Dementia (7) H/O: hysterectomy . "Provider Documentation" section prepared by Thanh Lofton. . Core Measure Problem Core Measures: None <Electronically signed by Thanh Lofton M.D.>
== END 2018-03-12 14:54 | DRG 152 ==
LOC: C.EDB 17:52 → C.MED 23:12 → ENRESERV 23:18 → C.MED 03-08 18:33
PROVIDERS: ADMIT Internal Medicine; ATTEND Internal Medicine
DX: J01.00 Acute maxillary sinusitis, unspecified (principal); G93.40 Encephalopathy, unspecified; I48.91 Unspecified atrial fibrillation; G30.9 Alzheimer's disease, unspecified; F02.80 Dementia in other diseases classified elsewhere, unspecified severity, without behavioral disturbance, psychotic disturbance, mood disturbance, and anxiety; Z51.81 Encounter for therapeutic drug level monitoring; Z79.82 Long term (current) use of aspirin; Z91.81 History of falling; Z66 Do not resuscitate; Z86.73 Personal history of transient ischemic attack (TIA), and cerebral infarction without residual deficits; Z87.891 Personal history of nicotine dependence